=== PATIENT | male | born 1995 | race African-American/Black ===

== ENCOUNTER 2017-03-14 23:28 | Emergency (ER) | payer SELFPAY ==
--- NOTE | 2017-03-15 00:09 | ED Physician Documentation ---
General Adult - HPI Stated Complaint: Muscle/body cramps for several days Chief Complaint: General Adult Additional Information: got out of residential and [facility] yesterday. was on 7 diff meds in residential, but intermediate didn't give him his meds. 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 he is out of meds and feels bad. Onset: days ago Timing: still present Severity: mild Further Comments: no Last known Well Code/Unknown Code: Unknown - ROS CONST: no problems. denies: fever, sweating, recent illness, weakness, chills EYES/ENT: none CVS/RESP: none. denies: chest pain, shortness of breath GI/: none. denies: abdominal pain, nausea MS/SKIN/LYMPH: none, other (muscle fasciculations) NEURO/PSYCH: denies: headache, fainting, dizziness, tingling - PAST HX Past History: hypertension, other (left ventricle ) Allergies/Adverse Reactions: Allergies Allergy/AdvReac Type Severity Reaction Status Date / Time haloperidol [From Haldol] Allergy Verified 03/14/17 23:53 haloperidol lactate Allergy Verified 03/14/17 23:53 [From Haldol] tramadol Allergy Verified 03/14/17 23:53 Home Medications: Ambulatory Orders Medication Instructions Recorded Hydrochlorothiazide 25 mg PO D 03/14/17 Lamotrigine [Lamictal] 200 mg PO BID 03/14/17 Lisinopril [Zestril] 40 mg PO D 03/14/17 Metoprolol Tartrate [Lopressor] 50 mg PO BID 03/14/17 Mirtazapine [Remeron] 15 mg PO HS 03/14/17 amLODIPine BESYLATE [Norvasc] 10 mg PO D 03/14/17 - SOCIAL HX Smoking History: cigarettes Alcohol Use: occasionally Drug Use: none - FAMILY HX Family History: Yes - VITAL SIGNS Vital Signs: Vital Signs Temp Pulse Resp BP Pulse Ox 89 18 135/82 98 03/14/17 23:28 03/14/17 23:28 03/14/17 23:28 03/14/17 23:28 - REVIEWED ASSESSMENTS Nursing Assessment Reviewed: Yes Vitals Reviewed: Yes General Adult Physical Exam - PHYSICAL EXAM GENERAL APPEARANCE: no distress EENT: ENT inspection normal NECK: normal inspection RESPIRATORY: no resp distress CVS: reg rate & rhythm, heart sounds normal, equal pulses ABDOMEN: soft, no distension BACK: normal inspection SKIN: warm/dry, normal color EXTREMITIES: non-tender, normal range of motion, no evidence of injury, no edema NEURO: oriented X3, mood/affect nml, cognition normal Discharge Clincal Impression: Bipolar 1 disorder, depressed, Has run out of medications Hypertension Qualifiers: Hypertension type: unspecified Qualified Code(s): I10 - Essential (primary) hypertension Referrals: Primary Doctor,No [Primary Care Provider] - 2 Days Home Medications: Ambulatory Orders Hydrochlorothiazide 25 mg PO D 03/14/17 Lamotrigine [Lamictal] 200 mg PO BID 03/14/17 Lisinopril [Zestril] 40 mg PO D 03/14/17 Metoprolol Tartrate [Lopressor] 50 mg PO BID 03/14/17 Mirtazapine [Remeron] 15 mg PO HS 03/14/17 amLODIPine BESYLATE [Norvasc] 10 mg PO D 03/14/17 Condition: Stable Disposition: 01 HOME, SELF-CARE Decision to Admit: NO Date of Decison to Admit: 03/15/17 Decision Time: 00:06
[2017-03-15 00:23] VITALS: BP 125/82
== END 2017-03-15 00:10 | disposition home or self-care (01) ==
LOC: ED 23:28
DX: F31.9 Bipolar disorder, unspecified (principal); F32.9 Major depressive disorder, single episode, unspecified; I10 Essential (primary) hypertension
CPT/HCPCS: 99283

== ENCOUNTER 2017-03-30 11:36 | Outpatient (CLI) | payer OTHER ==
[2017-03-30 11:46] LABS: BASOPHILS % 0.6 (0.0-1.5); EOSINOPHILS % 2.7 % (0.0-6.8); MEAN CORPUSCULAR HEMOGLOBIN 32.5 pg (28.0-34.0); MEAN CORPUSCULAR VOLUME 90.8 fl (80.0-100.0); MONOCYTES % 4.9 % (0.0-11.0)
[2017-03-30 12:13] LABS: eGFR (African) > 60; eGFR (Non-African) > 60
== END 2017-03-30 11:37 ==
LOC: LAB 11:36
PROVIDERS: ATTEND Physician Assistant
DX: R53.83 Other fatigue (principal)
CPT/HCPCS: 36415; 80053; 82306; 85025

== ENCOUNTER 2019-08-21 12:36 | Emergency (ER) | payer MEDICARE, OTHER ==
--- NOTE | 2019-08-21 12:49 | ED Physician Documentation ---
General Adult - HISTORIAN Historian: patient - HPI Stated Complaint: laceration to right forearm Chief Complaint: Laceration/Recheck/Suture Onset: minutes (30) Timing: still present Further Comments: yes (Right forarm cut with screw under car seat. He is UTD on tetanus. No other injury or complaint) - ROS CONST: no problems - PAST HX Past History: none Immunizations: UTD Allergies/Adverse Reactions: Allergies Allergy/AdvReac Type Severity Reaction Status Date / Time haloperidol [From Haldol] Allergy Verified 08/21/19 12:49 haloperidol lactate Allergy Verified 08/21/19 12:49 [From Haldol] tramadol Allergy Verified 08/21/19 12:49 - SOCIAL HX Smoking History: non-smoker Alcohol Use: none Drug Use: none - FAMILY HX Family History: No - VITAL SIGNS Vital Signs: Vital Signs Temp Pulse Resp BP Pulse Ox 98.4 F 81 19 134/90 97 08/21/19 12:37 08/21/19 12:37 08/21/19 12:37 08/21/19 12:37 08/21/19 12:37 - REVIEWED ASSESSMENTS Nursing Assessment Reviewed: Yes Vitals Reviewed: Yes Procedures Wound Location: upper extremity Wound's Depth, Shape: superficial Wound Explored: clean Anesthesia: 1% Lidocaine Wound Repaired With: sutures Suture Size/Type: 4:0 Number of Sutures: 5 ED Results Lab/Radiology - Orders Orders: ED Orders Category Date Time Status Edin Wrap Affected Extremity 1T Care 08/21/19 13:20 Ordered Cleanse with NS and Chlorhexid 1T Care 08/21/19 12:51 Active Lidocaine 1% 5ml [Xylocaine] Med 08/21/19 12:51 Discontinued 50 mg IJ NOW ONE General Adult Physical Exam - PHYSICAL EXAM GENERAL APPEARANCE: no distress EENT: eye inspection normal, no signs of dehydration NECK: normal inspection RESPIRATORY: no resp distress, chest non-tender, breath sounds normal CVS: reg rate & rhythm, heart sounds normal ABDOMEN: soft, non-tender BACK: normal inspection, no CVA tenderness SKIN: warm/dry, other (3 cm laceration right forearm ) EXTREMITIES: non-tender NEURO: oriented X3 Discharge Clincal Impression: Laceration Referrals: Jennifer Vasquez MD [Primary Care Provider] - 2 Days Comments: 1. Keep dressing x 24 hours 2. Keep area clean and dry 3. Sutures out in 7-10 days 4. Return to ER for any increased concerns Condition: Stable Disposition: 01 HOME, SELF-CARE Decision to Admit: NO Date of Decison to Admit: 08/21/19 Decision Time: 13:19
[2019-08-21] MEDS: Lidocaine 1% 5ml 10 MG/ML VIAL IJ ONE (12:50)
[2019-08-21 12:57] VITALS: BP 134/90
== END 2019-08-21 13:27 | disposition home or self-care (01) ==
LOC: ED 12:36
DX: S51.811A Laceration without foreign body of right forearm, initial encounter (principal); W26.8XXA Contact with other sharp object(s), not elsewhere classified, initial encounter
CPT/HCPCS: 12002; 99282; 99283